=== PATIENT | male | born 1960 | race African-American/Black ===

== ENCOUNTER 2021-03-24 16:02 | Emergency (ER) | END 2021-03-24 17:25 | disposition home or self-care (01) | LOC: ERS 16:02 | DX: S16.1XXA Strain of muscle, fascia and tendon at neck level, initial encounter (principal); W20.8XXA Other cause of strike by thrown, projected or falling object, initial encounter | CPT/HCPCS: 72125 ==

== ENCOUNTER 2021-03-25 07:22 | Emergency (ER) | payer SELFPAY ==
[2021-03-25] MEDS ORDERED: Acetaminophen 500 MG TAB ONE (08:22)
[2021-03-25] MEDS ORDERED: Ibuprofen 200 MG TAB ONE (08:22)
== END 2021-03-25 08:26 | disposition home or self-care (01) ==
LOC: ERS 07:22
DX: M54.2 Cervicalgia (principal); M25.551 Pain in right hip
CPT/HCPCS: 99283

== ENCOUNTER 2021-03-25 11:15 | Emergency (ER) | payer SELFPAY | END 2021-03-25 13:36 | disposition home or self-care (01) | LOC: ERS 11:15 | DX: M25.511 Pain in right shoulder (principal) ==

== ENCOUNTER 2021-03-28 10:59 | Emergency (ER) | payer SELFPAY | END 2021-03-28 12:14 | disposition home or self-care (01) | LOC: ERS 10:59 | DX: M25.512 Pain in left shoulder (principal); Z87.891 Personal history of nicotine dependence; W20.8XXA Other cause of strike by thrown, projected or falling object, initial encounter | CPT/HCPCS: 99283 ==

== ENCOUNTER 2021-04-28 13:09 | Emergency (ER) | payer SELFPAY | END 2021-04-28 13:32 | disposition left against medical advice (07) | LOC: ERS 13:09 | DX: Z53.21 Procedure and treatment not carried out due to patient leaving prior to being seen by health care provider (principal) ==

== ENCOUNTER 2021-05-06 08:57 | Emergency (ER) | payer SELFPAY ==
[2021-05-06] MEDS ORDERED: traMADol HCl 50 MG TAB ONE (11:17)
== END 2021-05-06 11:52 | disposition home or self-care (01) ==
LOC: ERS 08:57
DX: K04.7 Periapical abscess without sinus (principal); Z87.891 Personal history of nicotine dependence
CPT/HCPCS: 99283